=== PATIENT | male | born 1995 | race Caucasian/White ===

== ENCOUNTER → 2022-06-01 | Outpatient (CLI) | payer BC | LOC: M WUC 08:42 | PROVIDERS: ATTEND Student in an Organized Health Care Education/Training Program | DX: M79.644 Pain in right finger(s) (principal) ==

== ENCOUNTER → 2023-08-16 | Outpatient (CLI) | payer BC | LOC: M WHC 09:28 | PROVIDERS: ATTEND Nurse Practitioner Family | DX: N50.811 Right testicular pain (principal) ==